=== PATIENT | female | born 1995 | race Caucasian/White ===

== ENCOUNTER 2017-09-27 02:09 | Emergency (ER) | payer SELFPAY ==
[~2017-09-27] VITALS: Ht 157.5 cm; Wt 58.1 kg
--- NOTE | 2017-09-27 02:10 | NUR ---
PT BRIB LAFD FOR ALTERED MENTAL SAUS, POSSIBLE ETOH ABUSE, PT A/O X 4, BREATHING EVEN/UNLABORED ADMITS TO ETOH CONSUMPTION, SKIN WARM/DRY/INTACT, NO C/O PAIN AT THIS TIME
--- NOTE | 2017-09-27 03:58 | NUR ---
PT SLEEPING, BREATHING LOUDLY, ARROUSABLE TO VOICE, NAD NOTED, WILL CONTINUE TO MONITOR
--- NOTE | 2017-09-27 05:05 | NUR ---
PT AMBULATED APPROX 30' IN ER, STEADY GAIT, NO DISTURBANCE NOTED
--- NOTE | 2017-09-27 05:26 | NUR ---
PT AWAKE A/O X 4 TALKING TO MOTHER ON PHONE FOR RIDE, HOME, BREATHING EVEN/UNLABORED, NO C/O PAIN, NAD NOTED, UPDATED PT ON PLAN TO D/C
--- NOTE | 2017-09-27 05:39 | NUR ---
MOTHER IS BEDSIDE WITH PT, OK TO /C UNDER THE CARE OF MOTHER
[2017-09-27 05:40] VITALS: BP 121/79
== END 2017-09-27 05:40 | disposition home or self-care (01) ==
LOC: ER 02:11
DX: F10.129 Alcohol abuse with intoxication, unspecified (principal)
CPT/HCPCS: 99283; A4606; Z7610